=== PATIENT | female | born 1935 | race Caucasian/White ===

== ENCOUNTER → 2021-03-11 | Outpatient (CLI) | payer MEDICARE ==
[~2021-03-11] MED LIST: ADULT LOW DOSE81 MG PO; ALEVE220 MG; FISHOIL; MULTIVITAMINS; VITAMIN D2400 UNIT PO; VITCB500GO
[2021-03-11 14:48] LABS: ABSOLUTE EOSINOPHILS 0.2 thou/uL (0.0-0.7); ABSOLUTE LYMPHOCYTES 1.1 thou/uL (0.8-5.3); ABSOLUTE MONOCYTES 0.6 thou/uL (0.0-1.2); ABSOLUTE NEUTROPHILS 4.4 thou/uL (1.6-8.1); BASOPHILS 0.6 %; EOSINOPHILS 2.7 %; HEMATOCRIT 38.8 % (37.0-47.0); HEMOGLOBIN 12.6 gm/dL (12.0-15.0); LYMPHOCYTES 17.2 %; MCH 27.2 pg (26.0-34.0); MCHC 32.3 g/dL (28.0-37.0); MONOCYTES 9.7 %; MPV 10.1 fl. (7.2-11.1); NUCLEATED RBCS 0 /100WBC; PLATELET COUNT* 168 thou/uL (150-400); POLYS 69.8 %; RBC 4.62 mil/uL (4.20-5.00); RDW-CV 16.3 % (10.5-14.5); WBC 6.3 thou/uL (4.0-11.0)
[2021-03-11 14:55] LABS: ALBUMIN 3.7 g/dL (3.4-5.0); CALCIUM 8.8 mg/dL (8.5-10.1); CREATININE 0.8 mg/dL (0.6-1.3); TOTAL BILIRUBIN 0.4 mg/dL (<0.1-1.0); TOTAL PROTEIN 8.3 g/dL (6.4-8.2)
== END ==
LOC: M.LAB 14:21
PROVIDERS: ATTEND Internal Medicine Cardiovascular Disease
DX: I48.0 Paroxysmal atrial fibrillation (principal)

== ENCOUNTER → 2021-12-21 | Outpatient (CLI) | payer MEDICARE ==
--- NOTE | 2021-12-21 11:11 | 2DMMODE ---
[place] [address] 2 D/M-MODE ECHOCARDIOGRAM Name: MOERIVER PERKINS Room: [facility]#: [id number] Admission: 12/21/21 Attend Phys: Sarika Collazo RN Discharge: Date of : 39 Date of Service: 12/21/21 1111 Report #: [id number] THIS REPORT FOR: cc: DYLLAN RICHARDS MD, CHADWICK MD Holkins, John M. MD [facility] ~ APPROVED REPORT Study performed: 12/21/2021 11:12:30 EXAM: Comprehensive 2D, Doppler, and color-flow Echocardiogram Patient Location: Out-Patient BSA: 1.58 HR: 65 bpm BP: 120/72 mmHg Rhythm: Atrial Fibrillation Other Information Study Quality: Good Indications Murmur 2D Dimensions IVSd: 9.52 (7-11mm) LVOT Diam: 18.70 (18-24mm) LVDd: 40.91 mm PWd: 9.14 (7-11mm) Ascending Ao: 32.90 (22-36mm) LVDs: 19.73 (25-40mm) Aortic Root: 29.31 mm Volumes Left Atrial Volume (Systole) LA ESV Index: 17.80 mL/m2 Aortic Valve AoV Peak Jono.: 1.01 m/s AO Peak Gr.: 4.12 mmHg LVOT Max P.24 mmHg AO Mean Gr.: 2.23 mmHg LVOT Mean P.68 mmHg LVOT Max V: 0.56 m/s AO V2 VTI: 22.08 cm LVOT Mean V: 0.39 m/s NORBERT (VTI): 1.71 cm2 LVOT V1 VTI: 13.78 [place] [address] 2 D/M-MODE ECHOCARDIOGRAM Name: RIVER ROAS Room: [facility]#: [id number] Admission: 12/21/21 Attend Phys: Sarika Collazo RN Discharge: Date of : 39 Date of Service: 12/21/21 1111 Report #: [id number] MV Decel. Time: 106.39 ms MV PHT: 30.85 ms MVA (PHT): 7.13 cm2 TDI Medial E' Jnoo.: 0.09 m/s Lateral E' Jono.: 0.08 m/s Pulmonary Valve PV Peak Jono.: 0.60 m/s PV Peak Gr.: 1.45 mmHg Tricuspid Valve RAP Estimate: 5.00 mmHg TR Peak Gr.: 21.42 mmHg RVSP: 26.42 mmHg PA Pressure: 26.42 mmHg Left Ventricle The left ventricle is normal size. There is normal LV segmental wall motion. There is normal left ventricular wall thickness. Left ventricular systolic function is normal. The left ventricular ejection fraction is within the normal range. LVEF is 55-60%. The left ventricular diastolic function is normal. Right Ventricle The right ventricle is normal size. The right ventricular systolic function is normal. Atria The left atrium size is normal. The right atrium size is normal. Aortic Valve Mild aortic valve sclerosis. Mild aortic regurgitation. There is no aortic valvular stenosis. Mitral Valve The mitral valve is normal in structure. Mild mitral regurgitation. No evidence of mitral valve stenosis. Tricuspid Valve The tricuspid valve is normal in structure. Mild tricuspid regurgitation. Pulmonic Valve The pulmonary valve is normal in structure. [place] [address] 2 D/M-MODE ECHOCARDIOGRAM Name: HARDEEPRIVER ARIZMENDI GREGORIO [id number] Admission: 12/21/21 Attend Phys: Sarika Collazo RN Discharge: Date of : 39 Date of Service: 12/21/21 1111 Report #: [id number] Great Vessels The aortic root is normal in size. IVC is normal in size and collapses >50% with inspiration. Pericardium There is no pericardial effusion. <Conclusion> The left ventricle is normal size. There is normal left ventricular wall thickness. Left ventricular systolic function is normal. The left ventricular ejection fraction is within the normal range. LVEF is 55-60%. The right ventricle is normal size. The left atrium size is normal. Mild aortic valve sclerosis. Mild aortic regurgitation. There is no aortic valvular stenosis. The mitral valve is normal in structure. Mild mitral regurgitation. The tricuspid valve is normal in structure. Mild tricuspid regurgitation. IVC is normal in size and collapses >50% with inspiration. There is no pericardial effusion. There is normal LV segmental wall motion. <ELECTRONICALLY SIGNED> By: Ernesto Hopkins MD, FACC 12/21/21 1111 1111 1111 Ernesto Hopkins MD, FACC /INF
== END ==
LOC: M.CRD 09:54
PROVIDERS: ATTEND Registered Nurse
DX: I08.8 Other rheumatic multiple valve diseases (principal); R01.1 Cardiac murmur, unspecified